=== PATIENT | male | born 1985 | race Two or more races ===

== ENCOUNTER 2022-01-28 07:08 | Emergency (ER) | payer BC ==
[~2022-01-28] VITALS: Ht 170.2 cm; Wt 64.4 kg
--- NOTE | 2022-01-28 07:30 | NUR ---
Will Give pt d/c instructions, verbalized understanding.
== END 2022-01-28 07:33 | disposition home or self-care (01) ==
LOC: ER 07:08
DX: H92.01 Otalgia, right ear (principal)
CPT/HCPCS: A4663